=== PATIENT | male | born 1945 | race Caucasian/White ===

== ENCOUNTER 2017-12-09 17:05 | Observation (INO) | payer MEDICARE ==
[~2017-12-09] VITALS: Ht 188 cm; Wt 109.9 kg
[2017-12-09 18:32] LABS: BASOPHILS # (AUTO) 0.1 (0.0-0.1); BASOPHILS % 0.6 % (0.0-1.0); EOSINOPHILS # (AUTO) 0.4 (0.0-0.4); EOSINOPHILS % 3.4 % (0.0-6.0); HEMATOCRIT 46.2 % (38.2-49.6); LYMPHOCYTES # (AUTO) 1.8 (1.0-3.2); LYMPHOCYTES % 15.1 % (18.0-39.1); MEAN CORPUSCULAR HEMOGLOBIN 32.5 pg (28-32); MEAN CORPUSCULAR HGB CONC 34.6 g/dL (31-35); MEAN CORPUSCULAR VOLUME 93.7 fL (81-99); MONOCYTES % 16.5 % (4.4-11.3); NEUTROPHILS # (AUTO) 7.6 (2.1-6.9); NEUTROPHILS % 63.9 % (38.7-80.0); PLATELET COUNT 201 x10e3/uL (140-360); RED BLOOD COUNT 4.93 x10e6/uL (4.3-5.7); RED CELL DISTRIBUTION WIDTH 13.1 % (11.7-14.4)
--- NOTE | 2017-12-09 18:34 | Diagnostic Imaging Report ---
EXAMINATION: PA and lateral views of the chest. COMPARISON: None CLINICAL HISTORY: Chest pain DISCUSSION: Lines/tubes: Dual-lead pacemaker Lungs: The lungs are well inflated and clear. No pneumonia or pulmonary edema. Pleura: There is no pleural effusion or pneumothorax. Heart and mediastinum: The cardiomediastinal silhouette is normal. Bones and soft tissues: No acute bony abnormalities. IMPRESSION: No acute cardiopulmonary abnormalities. Signed by: Dr. Allan Pena M.D. on 12/09/2017 6:31 PM
[2017-12-09 18:42] LABS: INR 1.11; PARTIAL THROMBOPLASTIN TIME 25.2 seconds (23.8-35.5); PROTHROMBIN TIME 13.5 seconds (11.9-14.5)
[2017-12-09 18:53] LABS: ALANINE AMINOTRANSFERASE 30 IU/L (0-55); ALBUMIN 3.9 g/dL (3.5-5.0); ALKALINE PHOSPHATASE 61 IU/L (40-150); ANION GAP 14.7 mmol/L (8-16); BLOOD UREA NITROGEN 16 mg/dL (7-26); BUN/CREATININE RATIO 15 (6-25); CALCIUM 9.6 mg/dL (8.4-10.2); CARBON DIOXIDE 25 mmol/L (22-29); CHLORIDE 99 mmol/L (98-107); CREATINE KINASE 300 IU/L (30-200); CREATININE, SERUM 1.09 mg/dL (0.72-1.25); EST GLOMERULAR FILTRATION RATE > 60 ML/MIN (60-); GLUCOSE 99 mg/dL (74-118); POTASSIUM 3.7 mmol/L (3.5-5.1); SODIUM 135 mmol/L (136-145)
[2017-12-09 19:15] LABS: THYROID STIMULATING HORMONE 2.144 uIU/mL (0.350-4.940)
[2017-12-09 19:52] LABS: EOSINOPHILS % (MANUAL) 5 % (0-7); LYMPHOCYTES % (MANUAL) 13 % (19-48); METAMYELOCYTES % (MANUAL) 2 % (0-0); MONOCYTES % (MANUAL) 8 % (3.4-9.0); NEUTROPHILS % (MANUAL) 69 % (40-74); PLATELET ESTIMATE ADEQUATE; PLATELET MORPHOLOGY COMMENT NORMAL; RBC MORPHOLOGY COMMENT NORMAL
[2017-12-09] MEDS ORDERED: DEXTROSE 50% SYRINGE 50 ML IV PRN (23:30)
[2017-12-09] MEDS ORDERED: SODIUM CHLORIDE FLUSH 10 ML SYR INJ PRN (23:30)
[2017-12-09] MEDS ORDERED: FAMOTIDINE 20 MG/2 ML VIAL IV SCH (23:30)
[2017-12-09] MEDS ORDERED: NITROGLYCERIN 0.4 MG SUBL SL PRN (23:30)
[2017-12-09] MEDS ORDERED: ONDANSETRON HCL INJ 2 MG/ML VIAL IV PRN (23:30)
[2017-12-10 03:22] LABS: CREATINE KINASE MB 3.7 ng/mL (0-5.0)
[2017-12-10] MEDS: INSULIN REGULAR, HUMAN 100 UNIT/1 ML 3ML VIAL SQ SCH ×2 (08:00→11:41)
[2017-12-10] MEDS ORDERED: FAMOTIDINE 20 MG/2 ML VIAL IV SCH (09:00)
[2017-12-10] MEDS: ASPIRIN 81 MG ENTERIC COATED PO SCH (09:30)
[2017-12-10 10:36] LABS: CREATINE KINASE MB 3.3 ng/mL (0-5.0)
[2017-12-10] MEDS ORDERED: NICOTINE 21 MG/EA PATCH TOP PRN (12:15)
--- NOTE | 2017-12-10 17:06 | Consultation ---
DATE OF CONSULTATION: December 10, 2017 CARDIOLOGY CONSULTATION REASON FOR CONSULTATION: Evaluate cardiopulmonary complaints. HISTORY OF PRESENT ILLNESS: Mr. Barbosa is a 72-year-old gentleman with past medical history of hypertension, hypercholesterolemia, peripheral artery disease with known occluded right SFA done on noninvasive setting in the past as well as history of depression and interestingly recently implanted permanent pacemaker in December of this year for complete heart block with exercise treadmill stress testing. Patient has reported several weeks of new-onset episodes of intense left shoulder pain associated with tingling in the left hand and breaks out into sweats associated with severe dyspnea. Patient was evaluated with an exercise treadmill stress test at [facility] at around August of this year and upon the exercise protocol, patient developed exercise-induced complete heart block; however, other than that was not able to achieve target heart rate. He was then scheduled for an urgent outpatient permanent pacemaker implantation and since this pacemaker implant has had very high degrees of pacing and comes in today at 100% AV paced in the rate of 60s. Patient had an intense episode of severe left shoulder squeezing associated with tingling of the left arm associated with severe drenching sweats, diaphoresis and just inability to catch his breath. He reports the pain lasted several minutes and came into the emergency room for further care and management. He says that he is having these episodes on a very frequent basis and went to his primary care physician's office initially who was worried that he was having anginal equivalent symptoms. We had a discussion with him at bedside today and we cannot account for any alternative like diagnosis. Patient denies any weight loss, fevers or chills, just the drenching sweats. PAST MEDICAL HISTORY 1. Complete heart block status post permanent pacemaker implantation in August of 2017 in the setting of a treadmill stress test. 2. Peripheral artery disease with known occluded what tends to be right SFA on arterial duplex and exam confirms this. 3. Presumed chronic obstructive pulmonary disease with extensive smoking history. 4. Depression. PAST SURGICAL HISTORY 1. History of dual-chamber permanent pacemaker implant in August of 2017. 2. History of right hand fracture and subsequent surgical repair. FAMILY HISTORY: Mother at 87 from old age. Father at 66 with lung cancer. Has a paternal uncle who of heart attack as well as paternal grandfather who of heart attack and had a stroke. SOCIAL HISTORY: He is currently one-half pack per day smoker, was counseled to quitting. Denies any alcohol or illicit drug use. ALLERGIES: NO KNOWN DRUG ALLERGIES. HOME MEDICATIONS: Include Plavix 75 mg daily, pravastatin 40 mg daily, losartan 25 mg daily, amlodipine 2.5 mg b.i.d., Prozac unknown dose daily. REVIEW OF SYSTEMS GENERAL: Positive for fatigue, malaise. Denies any fevers or chills. Positive for sweats as noted above. HEENT: No headaches, visual complaints, sore throat or stuffy nose. RESPIRATORY: Denies any pleuritic chest pain. Has an occasional nonproductive cough. CARDIOVASCULAR: As per HPI. GI: Denies any abdominal pain, nausea, vomiting, bright red blood per rectum, melena, hematemesis. : Denies any dysuria, pyuria or change in urinary frequency. MUSCULOSKELETAL: Has intermittent cramping in his legs occurring at night that improves with dangling, highly suggestive of PAD. SKIN: No breakdowns or rashes. NEUROLOGIC: Denies any focal weakness, numbness, tingling, seizures, headaches, history of TIA or stroke. Remainder of review of systems negative otherwise mentioned. PHYSICAL EXAMINATION VITALS: Height of 74 inches, weight of 240 pounds, BMI is 30.8, temperature of 97.4, pulse of 59, respiratory rate 16, blood pressure 118/79, O2 sat 96% on room air. GENERAL: This is a well-nourished, well-developed gentleman who is currently in no apparent distress. HEENT: Normocephalic, atraumatic. Pupils equal, round and reactive to light. Extraocular movements are intact. Oropharynx is clear. NECK: No elevation of jugular venous pulsation. There is a faint right carotid bruit. CARDIOVASCULAR: Regular rate and rhythm. Normal S1 and S2. Soft 1/6 systolic murmur at the left lower sternal border. LUNGS: Show slightly decreased air flow throughout lung matt compatible with COPD type changes. There is a left shoulder permanent pacemaker implant site that is clean, dry and intact. BACK: No costovertebral angle tenderness. EXTREMITIES: Warm with deformity of the right wrist region, 1+ right radial pulse, 2+ left radial pulse, 2+ bilateral femoral pulses, 0 to 1+ right popliteal pulse, 2+ left popliteal pulse, 1+ pedal pulse on the left, 0 to 1+ right pedal pulses. NEUROLOGIC: Cranial nerves II through XII are intact. Strength is grossly nonfocal. PSYCH: Normal fluent speech. Appropriate affect. No anxiety or delusion. LABS AND IMAGING DATA: White count of 11.9, hemoglobin 16.0, hematocrit 46.2, and platelets of 201,000. Sodium 135, potassium 3.7, chloride 99, bicarb 25, BUN 16, creatinine 1.09, glucose of 99, calcium of 9.6. AST 28, ALT 30, alk phos 61, total protein is 7.9. Albumin of 3.9. Total cholesterol is 132, HDL 44, LDL of 61. TSH is 2.14. INR is 1.11. EKG reveals atrial and ventricular paced rhythm. Chest x-ray shows pacemaker but no acute abnormalities. DIAGNOSES 1. Cardiopulmonary complaints most suggestive of unstable angina pectoris. 2. Premature conduction system disease with complete heart block that appears to be largely pacemaker dependent at the present time, questionable necrosis of his conduction system. 3. Peripheral artery disease with [place] IV claudication symptoms of the right lower extremity. 4. Right carotid bruit. 5. Smoker/chronic obstructive pulmonary disease changes on exam. PLAN/RECOMMENDATIONS 1. From a cardiovascular standpoint, patient's risk factor is high blood pressure. Is on cholesterol medication for what seems to be pleiotropic effects but undoubtedly has peripheral artery disease on exam and states that he had an arterial duplex done in the past which confirmed 100% occluded right SFA. In terms of clinically significant PAD, we have a high pretest probability of CAD in this gentleman. 2. We will continue Plavix and place him on aspirin therapy. His physicians have been concerned about his vascular status perhaps for years as he reports taking Plavix for years. 3. Counseled to quit smoking. 4. Telemetry monitoring. 5. Monitor cardiac enzymes. 6. After discussion of different management options, patient is agreeable to proceeding with definitive ischemic evaluation with a cardiac catheterization. He is not a candidate for exercise treadmill stress testing due to his 100% AV paced rhythm and furthermore nuclear stress testing has a high tendency of having false positive and negative nuclear stress testing and hence the catheterization in my opinion is the best approach at the present time. Job#: [id number] MAJ FALCON
[2017-12-10] MEDS: CLOPIDOGREL BISULFATE 75 MG TAB PO SCH (17:19)
[2017-12-10] MEDS: AMLODIPINE BESYLATE 5 MG TAB PO SCH (17:19)
[2017-12-10] MEDS ORDERED: PROZAC20 MG (18:22)
[2017-12-10 18:48] VITALS: BP 111/59
[2017-12-10 18:51] VITALS: BP 111/59
[2017-12-10 19:00] VITALS: BP 132/73
[2017-12-10 20:00] VITALS: BP 132/73
[2017-12-10] MEDS ORDERED: PRAVASTATIN 20 MG TAB PO SCH (21:00)
[2017-12-10] MEDS ORDERED: SODIUM CHLORIDE 0.9% 1000ML 1,000 ML IV SCH (23:00)
[2017-12-11] VITALS (9 sets, daily range): BP systolic 103–144; BP diastolic 49–86
[2017-12-11 05:17] LABS: BASOPHILS # (AUTO) 0.1 (0.0-0.1); BASOPHILS % 0.6 % (0.0-1.0); EOSINOPHILS # (AUTO) 0.4 (0.0-0.4); EOSINOPHILS % 4.4 % (0.0-6.0); HEMATOCRIT 42.8 % (38.2-49.6); HEMOGLOBIN 14.6 g/dL (14.0-18.0); LYMPHOCYTES # (AUTO) 2.1 (1.0-3.2); LYMPHOCYTES % 22.1 % (18.0-39.1); MEAN CORPUSCULAR HEMOGLOBIN 32.2 pg (28-32); MEAN CORPUSCULAR HGB CONC 34.1 g/dL (31-35); MEAN CORPUSCULAR VOLUME 94.5 fL (81-99); MONOCYTES # (AUTO) 1.6 (0.2-0.8); MONOCYTES % 17.1 % (4.4-11.3); NEUTROPHILS # (AUTO) 5.2 (2.1-6.9); NEUTROPHILS % 55.4 % (38.7-80.0); PLATELET COUNT 182 x10e3/uL (140-360); RED BLOOD COUNT 4.53 x10e6/uL (4.3-5.7); RED CELL DISTRIBUTION WIDTH 13.2 % (11.7-14.4)
[2017-12-11 05:35] LABS: ALANINE AMINOTRANSFERASE 25 IU/L (0-55); ALBUMIN 3.3 g/dL (3.5-5.0); ALKALINE PHOSPHATASE 51 IU/L (40-150); ANION GAP 12.8 mmol/L (8-16); BLOOD UREA NITROGEN 15 mg/dL (7-26); BUN/CREATININE RATIO 19 (6-25); CALCIUM 8.9 mg/dL (8.4-10.2); CARBON DIOXIDE 23 mmol/L (22-29); CHLORIDE 109 mmol/L (98-107); CHOL/HDL RATIO 3.4 (3.9-4.7); CHOLESTEROL 134 MD/DL (0-199); CREATININE, SERUM 0.79 mg/dL (0.72-1.25); EST GLOMERULAR FILTRATION RATE > 60 ML/MIN (60-); GLUCOSE 106 mg/dL (74-118); HDL CHOLESTEROL 40 MG/DL (40-60); LDL CHOLESTEROL 64 MG/DL (60-130); POTASSIUM 3.8 mmol/L (3.5-5.1); SODIUM 141 mmol/L (136-145); TRIGLYCERIDES 152 MG/DL (0-149)
[2017-12-11 05:56] LABS: THYROID STIMULATING HORMONE 2.153 uIU/mL (0.350-4.940)
[2017-12-11 06:33] LABS: INR 1.25; PROTHROMBIN TIME 14.8 seconds (11.9-14.5)
[2017-12-11] MEDS ORDERED: LOSARTAN POTASSIUM 25 MG TAB PO SCH (09:00)
[2017-12-11] MEDS ORDERED: FLUOXETINE HCL 20 MG CAP PO SCH (09:00)
[2017-12-11] MEDS ORDERED: SODIUM CHLORIDE 0.9% 1000ML 1,000 ML ONE (09:19)
[2017-12-11] MEDS ORDERED: MIDAZOLAM HCL 2 MG/2 ML VIAL ONE (09:24)
[2017-12-11] MEDS ORDERED: FENTANYL CITRATE/PF 100MCG/2 ML INJ ONE (09:25)
--- NOTE | 2017-12-11 11:15 | Operative Report ---
DATE OF PROCEDURE: December 11, 2017 TITLE OF PROCEDURE: Left cardiac catheterization. INDICATIONS: Please refer to our cardiac consultation. TECHNICAL DETAILS: After the usual sterile preparation and draping procedure, intravenous Versed and fentanyl were given for sedation and local Xylocaine for anesthesia. A 4-Romanian sheath was established in place. Navya left 4 (probably JL5 would be better in the future) engaged the left main coronary artery. Coronary angiogram was done. For the right coronary artery, 3DRC was used. For hemodynamic measurements and left ventriculogram, pigtail is used. At the end of the procedure, sheath was removed. Hemostasis achieved manually. No complications and no blood loss. RESULTS A. Coronary angiogram. 1. Left main: 20% ostial disease. 2. LAD: Large artery. In the mid LAD on a curve, there is 40% lesion with muscle bridge. 3. Circumflex coronary artery: Minimal plaquing, giving medium-size 1st obtuse marginal. 4. Right coronary artery: Large, dominant, giving PDA and large PLV branches with minimal plaquing. B. Hemodynamics: Aorta pressure 140/80. LV pressure 140/18. C. Left ventriculogram in the right anterior oblique view showed normal size ventricle with an ejection fraction of 60%. Other finding is enlarged aortic root. IMPRESSION 1. Mild coronary artery disease. The worst lesion is in the mid left anterior descending, 40% on a curve and with muscle bridge. 2. Dominant right coronary artery. 3. Left ventricular ejection fraction of 60%. 4. Enlarged aortic root. COMPLICATIONS: None. BLOOD LOSS: None. RECOMMENDATIONS: Medical therapy. Job#: [id number]
[2017-12-11] MEDS ORDERED: LIDOCAINE HCL 2% LOCAL 20 ML VIAL ONE (11:32)
[2017-12-11] MEDS ORDERED: IOPAMIDOL 370 MG/ML 200 ML INFUS..BTL INJ ONE (11:33)
[2017-12-11] MEDS ORDERED: HEPARIN SOD/SOD CHLORIDE 1,000 ML ONE ×2 (11:33→11:42)
[2017-12-11] MEDS ORDERED: HYDROCODONE/APAP 5MG-325MG TAB PO PRN (12:45)
[2017-12-11] MEDS: ASPIRIN 81 MG ENTERIC COATED PO SCH (14:07)
[2017-12-11] MEDS: CLOPIDOGREL BISULFATE 75 MG TAB PO SCH (14:08)
[2017-12-11] MEDS: AMLODIPINE BESYLATE 5 MG TAB PO SCH (14:08)
[2017-12-11] MEDS ORDERED: TYLENOL WITH C1 EACH PO (14:50)
--- NOTE | 2017-12-11 16:46 | Discharge Summary ---
PRIMARY CARE PHYSICIAN: Dr. Damion Ramirez with [facility]. FINAL DIAGNOSIS: Mild coronary artery disease. SECONDARY DIAGNOSES 1. Peripheral arterial disease. 2. Permanent pacemaker. 3. Chronic obstructive pulmonary disease. 4. Hypertension. 5. Active smoker. CONSULTANTS: Dr. Edgar. cardiology. PROCEDURE/STUDIES PERFORMED: 1. Left heart cath. 2. Pacemaker interrogation, which was okay. HISTORY: Per H\T\P. HOSPITAL COURSE: The patient was taken to the fence laborer, and surprisingly he only has mild coronary artery disease. No intervention indicated. Therefore, still unclear why he was having diaphoresis and cardiac pulmonary complaint. His pacemaker was interrogated, which is functioning well. Therefore, the patient can be discharged home. The patient was seen and examined today. CONDITION ON DISCHARGE: Stable. DISCHARGE MEDICATIONS: Please see medication reconciliation form. PRABHAKAR MASTERSON M.D. Job#: [id number] cc: DAMION RAMIREZ MD
[2017-12-11] MEDS ORDERED: SIMVASTATIN 20 MG TAB PO SCH (21:00)
== END 2017-12-11 15:00 | disposition home or self-care (01) ==
LOC: ER 17:05 → ERHOLD 23:27 → IMCU 12-10 18:00
PROVIDERS: ADMIT Internal Medicine; ATTEND Internal Medicine
DX: I25.110 Atherosclerotic heart disease of native coronary artery with unstable angina pectoris (principal); I25.2 Old myocardial infarction; I49.5 Sick sinus syndrome; I44.2 Atrioventricular block, complete; I70.201 Unspecified atherosclerosis of native arteries of extremities, right leg; I10 Essential (primary) hypertension; E11.9 Type 2 diabetes mellitus without complications; F41.9 Anxiety disorder, unspecified; F32.9 Major depressive disorder, single episode, unspecified; Z95.810 Presence of automatic (implantable) cardiac defibrillator; E78.00 Pure hypercholesterolemia, unspecified; J44.9 Chronic obstructive pulmonary disease, unspecified; F17.210 Nicotine dependence, cigarettes, uncomplicated; Z83.3 Family history of diabetes mellitus; Z82.49 Family history of ischemic heart disease and other diseases of the circulatory system
CPT/HCPCS: 36415 ×3; 71046; 80053 ×2; 80061 ×2; 82550 ×2; 82553 ×2; 82948 ×2; 84443 ×2; 84484 ×2; 85025 ×2; 85610 ×2; 85730; 93005; 93306; 93458; 93880; 99284; C1766; C1769; G0378 ×3; J2001; J2250; J7030; Q9967